=== PATIENT | male | born 1960 ===

== ENCOUNTER 2018-10-24 09:18 | Day surgery (SDC) | payer OTHER ==
[2018-10-24] MEDS ORDERED: LIDOCAINE HCL 1% MPF 30 SOL ONE (10:21)
[2018-10-24] MEDS ORDERED: PROPOFOL 500 MG/50 ML EMU IV ONE (10:21)
[2018-10-24 10:58] VITALS: O2SAT 98
[2018-10-24 11:13] VITALS: BP 122/80; PULSE 71; RESP 18; TEMP 97.4
== END 2018-10-24 11:27 | disposition home or self-care (01) | DRG 951 ==
LOC: SURG 09:18
PROVIDERS: ATTEND Surgery
DX: Z12.11 Encounter for screening for malignant neoplasm of colon (principal)
CPT/HCPCS: J2001; J2704